=== PATIENT | male | born 2000 | race Caucasian/White ===

== ENCOUNTER 2019-07-30 09:04 | Outpatient (CLI) | payer OTHER ==
--- NOTE | 2019-07-30 11:44 | RAD ---
EXAM: XR Scoliosis Study DATE: 07/30/2019 12:00 AM INDICATION: Idiopathic scoliosis COMPARISON: None. FINDING: There is 4 degrees of rightward convexity centered at T7. No congenital vertebral anomaly i s demonstrated. There are 12 rib-bearing thoracic vertebra. There are 5 lumbar type vertebra. No appreciable curvature seen within the lumbar spine. SI joints are normal appearing. Visualized lungs are clear. Bowel gas pattern is unobstructed. IMPRESSION:Minimal rightward curvature of the thoracic spine.
== END 2019-07-30 09:05 | disposition home or self-care (01) ==
LOC: BICRAD 09:04
PROVIDERS: ATTEND Physician Assistant
DX: M41.25 Other idiopathic scoliosis, thoracolumbar region (principal); M43.8X6 Other specified deforming dorsopathies, lumbar region
CPT/HCPCS: 72081